=== PATIENT | male | born 1950 | race Caucasian/White ===

== ENCOUNTER 2017-08-07 02:45 | Inpatient (IN) | payer OTHER ==
[2017-08-07] VITALS (7 sets, daily range): BP systolic 109–134; BP diastolic 64–80
[~2017-08-07] VITALS: Ht 175.3 cm; Wt 96.3 kg
[~2017-08-07 02:45] MED LIST: CARAFATE 1 GM TA1 G1 PO; CARDIZEM; CIPRO500 MG PO; COREG6.25 MG PO; DILTIAZEM ER120 M1 PO; FENOFIBRATE160 MG PO; FLAGYL500 MG PO; HYDROCHLOROTH12.5 M1 PO; HYDROCODONE-AP1 EAC6 PO; HYOSCYAMIN125 MCG/5 PO; LASIX 40 MG TAB40 M2 PO; LOPERAMIDE 2 MG2 M1 PO; NORCO 5-325 TA1 EACH PO; OMEPRAZOLE 20 M20 MG PO; ZOCOR 10 MG TAB10 MG PO; ZOCOR40 MG PO; ZOFRAN ODT4 MG PO
[2017-08-07] MEDS ORDERED: DILTIAZEM ER180 M1 PO (02:50)
[2017-08-07 03:05] LABS: HEMATOCRIT 41.7 % (42.0-52.0); HEMOGLOBIN 14.2 gm/dL (14.0-18.0); MCH 29.7 pg (26.0-34.0); MCHC 33.9 g/dL (28.0-37.0); MCV 87.5 fL (80.0-100.0); NUCLEATED RBCS 0 /100WBC; PLATELET COUNT* 210 thou/uL (150-400); RBC 4.77 mil/uL (4.50-6.00); RDW-CV 13.7 % (10.5-14.5); WBC 15.8 thou/uL (4.0-11.0)
[2017-08-07 03:17] LABS: INR 1.2; PROTIME 11.6 Seconds (9.20-11.50)
[2017-08-07 03:19] LABS: ANION GAP 10 mmol/L (7-16); BUN 20 mg/dL (7-18); CALCIUM 8.4 mg/dL (8.5-10.1); CHLORIDE 97 mmol/L (98-107); CO2 28 mmol/L (21-32); CREATININE 1.7 mg/dL (0.6-1.3); GLUCOSE 97 mg/dL (70-99); POTASSIUM 3.4 mmol/L (3.5-5.1); SODIUM 135 mmol/L (136-145)
[2017-08-07 03:33] LABS: ALBUMIN 3.2 g/dL (3.4-5.0); ALKALINE PHOSPHATASE 119 U/L (46-116); LIPASE 221 U/L (73-393); NT-PRO BRAIN NAT PEPTIDE 162 pg/mL (<300); SGOT 18 U/L (15-37); SGPT 13 U/L (30-65); TOTAL BILIRUBIN 0.6 mg/dL (<0.1-1.0); TOTAL PROTEIN 7.9 g/dL (6.4-8.2); TROPONIN-I LEVEL <0.06 ng/mL (<0.06)
[2017-08-07 04:42] LABS: URINE BILIRUBIN NEGATIVE (Negative); URINE BLOOD 2+ (Negative); URINE CLARITY CLEAR; URINE COLOR YELLOW; URINE GLUCOSE-RANDOM NEGATIVE (Negative); URINE KETONES TRACE (Negative); URINE NITRITE-REFLEX NEGATIVE (Negative); URINE PROTEIN NEGATIVE (Negative); URINE UROBILINOGEN 0.2 E.U./dl (0.2-1.0)
[2017-08-07 04:45] LABS: ABSOLUTE BASOPHILS 0.2 thou/uL (0.0-0.2); ABSOLUTE LYMPHOCYTES 0.9 thou/uL (0.8-5.3); ABSOLUTE MONOCYTES 0.3 thou/uL (0.0-1.2); ABSOLUTE NEUTROPHILS 14.4 thou/uL (1.6-8.1); PLATELET ESTIMATE ADEQUATE
[2017-08-07 04:48] LABS: URINE LEUKOCYTES-REFLEX 3+ (Negative)
[2017-08-07 04:58] LABS: CASTS None Seen /LPF (None Seen); SQUAMOUS NONE SEEN /LPF (0-3)
[2017-08-07 04:59] LABS: URINE RBC 3-10 Few /HPF (0-2); URINE WBC-REFLEX >25 Many /HPF (0-5)
[2017-08-07 05:00] LABS: CRYSTALS None Seen /LPF (None Seen)
--- NOTE | 2017-08-07 16:03 | EKG ---
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: CHACHA : 1950 Requested By: Qi Bryant Order Number: [id number] Tatyana MD: Raoul Bright Measurements Intervals [place] Rate: 96 P: 53 VA: 171 QRS: 60 QRSD: 94 T: 46 QT: 350 QTc: 443 Interpretive Statements Sinus rhythm Left ventricular hypertrophy Baseline wander in lead(s) I,II,aVR,aVL,aVF,V1,V5,V6 Compared to ECG 04/14/2016 12:01:55 Left ventricular hypertrophy now present ST (T wave) deviation now present Electronically Signed On 08-07-2017 16:03:25 CDT by Raoul Bright [email or web address] <ELECTRONICALLY SIGNED> By: Raoul Bright MD, FACC 08/07/17 1603 0249 [id number] Raoul Bright MD, FACC /EPI
--- NOTE | 2017-08-07 16:04 | EKG ---
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
[2017-08-08 00:16] VITALS: BP 82/48
[2017-08-08 00:42] VITALS: BP 138/82
--- NOTE | 2017-08-09 09:42 | EKG ---
[place] [address] ELECTROCARDIOGRAM REPORT Name: SEN CLAY Room: [address] IN R#: [id number] Admission: 08/07/17 Attend Phys: Edward Magallanes, Discharge: 08/08/17 Date of : 48 Report #: [id number] THIS REPORT FOR: //name// [facility] Test Date: 2017-08-07 Test Time: 23:09:59 Pat Name: SEN CLAY Department: Room: [address] Gender: M Courtesy Van Driver: reji : 1950 Requested By: Edward Magallanes Order Number: [id number] Tatyana MD: Malik Crews Measurements Intervals [place] Rate: 82 P: 49 AL: 168 QRS: 51 QRSD: 100 T: 51 QT: 370 QTc: 432 Interpretive Statements Sinus rhythm Borderline ST elevation, inferior leads Baseline wander in lead(s) V2,V3,V5 Compared to ECG 08/07/2017 03:33:26 no change Electronically Signed On 08-09-2017 9:42:12 CDT by Malik Crews [email or web address] <ELECTRONICALLY SIGNED> By: Malik Crews MD, [facility] 08/09/17 0942 2309 2309 Malik Crews MD, [facility] /EPI
--- NOTE | 2017-08-09 17:14 | CON ---
[address] [address] CONSULTATION Name: DANNASEN F Room: [address]#: [id number] Admission: 08/07/17 Attend Phys: Edward Magallanes, Discharge: 08/08/17 Date of : 48 Report #: [id number] THIS REPORT FOR: //name// CC: Bl[facility] TYPE OF REPORT: Cardiology consultation. INDICATION: Chest pain. HISTORY OF PRESENT ILLNESS: The patient is a very pleasant 67-year-old gentleman with no prior cardiac history. He was awoken from sleep at approximately 2:30 this morning with midsternal chest pain and left arm tightness and numbness. The pain persisted for 15 minutes after which he proceeded to the hospital for further evaluation. He was given fentanyl. Oxygen aspirin and nitroglycerin in the Emergency Room with relief of his chest pain. His initial cardiac enzymes are unremarkable. EKG showed sinus rhythm without acute ST or T-wave abnormality noted. The patient states he has had intermittent discomfort off and on while lodging in the Emergency Room this past night. At the time of my interview, he was pain free. CARDIAC RISK FACTORS: Include tobacco use, hyperlipidemia and hypertension. PAST MEDICAL HISTORY: 1. Hypertension. 2. Hyperlipidemia. 3. Chronic tobacco use. 4. Pancreatitis. 5. Nephrolithiasis. 6. Gastroesophageal reflux. PAST SURGICAL HISTORY: 1. Bilateral hernia repair. 2. Kidney stone removal x 2. 3. Cholecystectomy. FAMILY HISTORY: Noncontributory. SOCIAL HISTORY: The patient smokes half a pack of cigarettes daily. He does not drink alcohol. He lives in [place], [place]. ALLERGIES: He has medical intolerances to DARVON. HOME MEDICATIONS: Carvedilol 6.25 mg b.i.d., diltiazem 1 tablet daily, Maxzide 25 one tablet daily and Protonix [place] [address] CONSULTATION Name: SEN CLAY Room: [address]#: [id number] Admission: 08/07/17 Attend Phys: Edward Magallanes, Discharge: 08/08/17 Date of : 48 Report #: [id number] REVIEW OF SYSTEMS: A 14-point review of systems: The patient notes a recent urinary tract infection for which he was on Bactrim. He reports recent bout of pancreatitis that has resolved. He has dyspnea, but no orthopnea or paroxysmal nocturnal dyspnea. 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 He is without other complaint at this time. PHYSICAL EXAMINATION: VITAL SIGNS: Blood pressure 128/80 and pulse 87 and regular. GENERAL: Pleasant gentleman who is in no distress. Mood and affect appropriate. HEENT: Extraocular muscles intact. Mucous membranes moist. NECK: Shows no jugular venous distention. There are no carotid bruits. CHEST: Reveals clear lung odom without wheezes or rales. CARDIOVASCULAR: Reveals a regular rhythm. Normal S1 and S2. I do not appreciate gallop or murmur. ABDOMEN: Reveals normal bowel sounds. The abdomen is soft and nontender. EXTREMITIES: Shows no edema. Peripheral pulses are 2+ and easily palpable. LABORATORY DATA: Labs are reviewed. Sodium 135, potassium 3.4, chloride 97, bicarbonate 28, BUN 20, creatinine 1.7 and serum glucose 97. AST 18, amylase 86, lipase 221, total bilirubin 0.6, calcium 8.4, phosphorus 2.7, magnesium 1.8, alkaline phosphatase 119, ALT 13, total protein 7.9 and albumin 3.2. EGFR 40. Troponin less than 0.06 on 3 separate occasions. NT-pro-BNP 162. White blood cell count 15.8; hemoglobin 14.2 and platelet count 210,000. RADIOLOGICAL DATA: V/Q scan was low probability. Chest x-ray showed possible mild left basilar infiltrate. No evidence of effusion or edema noted. IMPRESSION AND RECOMMENDATIONS: 1. Chest pain and the patient with multiple risk factors for coronary artery disease. Thus far, he has ruled out for myocardial infarction. His EKGs are unremarkable. We would recommend proceeding with noninvasive stress testing and echocardiogram to further evaluate. 2. Chronic tobacco use, cessation advised. 3. Hypertension. Blood pressure appears to be adequately controlled on his home regimen. 4. Hyperlipidemia. Continue current statin agent. <ELECTRONICALLY SIGNED> By: Raoul Bright MD, FACC 08/09/17 1714 1420 [id number] Bright MD, FACC /nt
== END 2017-08-08 02:40 | disposition left against medical advice (07) | DRG 392 ==
LOC: M.ERS 02:45 → M.TBA-ER 03:52 → M.2W 17:30
PROVIDERS: Emergency Medicine; ADMIT Family Medicine
DX: K21.9 Gastro-esophageal reflux disease without esophagitis (principal); N39.0 Urinary tract infection, site not specified; K86.1 Other chronic pancreatitis; R65.10 Systemic inflammatory response syndrome (SIRS) of non-infectious origin without acute organ dysfunction; I20.9 Angina pectoris, unspecified; I10 Essential (primary) hypertension; E78.00 Pure hypercholesterolemia, unspecified; F17.210 Nicotine dependence, cigarettes, uncomplicated; E78.5 Hyperlipidemia, unspecified; Z90.49 Acquired absence of other specified parts of digestive tract; Z88.6 Allergy status to analgesic agent; Z87.442 Personal history of urinary calculi; Z79.2 Long term (current) use of antibiotics; Z79.899 Other long term (current) drug therapy

== ENCOUNTER → 2017-12-02 | Outpatient (CLI) | payer OTHER ==
[~2017-12-02] MED LIST changes: +DILTIAZEM ER180 M1 PO
== END ==
LOC: M.CT 07:30
DX: J44.9 Chronic obstructive pulmonary disease, unspecified (principal); R63.0 Anorexia; R63.4 Abnormal weight loss; J43.8 Other emphysema; J84.10 Pulmonary fibrosis, unspecified; N28.89 Other specified disorders of kidney and ureter; D35.00 Benign neoplasm of unspecified adrenal gland; N28.9 Disorder of kidney and ureter, unspecified

== ENCOUNTER → 2018-12-28 | Outpatient (CLI) | payer OTHER ==
[~2018-12-28] MED LIST changes: +ALPRAZOLAM1 MG PO; +ATORVASTATIN CA40 MG PO; +CARDIZEM CD120 MG PO; +COLCHICINE0.6 MG PO; +IBUPROFEN 800800 M1 PO; +PROTONIX40 M1 PO
== END ==
LOC: M.CT 11:12
DX: N28.1 Cyst of kidney, acquired (principal); R91.1 Solitary pulmonary nodule; J43.8 Other emphysema; G35 Multiple sclerosis

== ENCOUNTER → 2019-02-13 | Outpatient (CLI) | payer OTHER | LOC: M.MRI 08:18 | DX: R16.0 Hepatomegaly, not elsewhere classified (principal); K76.9 Liver disease, unspecified; E27.8 Other specified disorders of adrenal gland ==